=== PATIENT | female | born 1955 | race Caucasian/White ===

== ENCOUNTER 2022-08-12 11:21 | Day surgery (SDC) | payer MEDICARE, OTHER ==
[~2022-08-12 11:21] MED LIST: Lactated Ringers 1,000 ML IV SCH; Propofol 200 MG/20 ML SDV ONE; Sodium Chloride 0.9% 10 ML Syringe FLUSH PRN
[2022-08-12] MEDS ORDERED: Propofol 200 MG/20 ML SDV ONE (12:10)
[2022-08-12] MEDS ORDERED: Lidocaine 2% 100 MG/5 ML Syringe IV ONE (12:30)
== END 2022-08-12 13:54 | disposition home or self-care (01) ==
LOC: LL.SDS 11:21
PROVIDERS: ATTEND Surgery
DX: Z12.11 Encounter for screening for malignant neoplasm of colon (principal); K29.50 Unspecified chronic gastritis without bleeding; K57.30 Diverticulosis of large intestine without perforation or abscess without bleeding; E11.40 Type 2 diabetes mellitus with diabetic neuropathy, unspecified; I10 Essential (primary) hypertension; E78.00 Pure hypercholesterolemia, unspecified; E04.9 Nontoxic goiter, unspecified; Z86.010 Personal history of colon polyps; Z79.899 Other long term (current) drug therapy; Z79.4 Long term (current) use of insulin; Z79.84 Long term (current) use of oral hypoglycemic drugs; Z98.890 Other specified postprocedural states; Z90.49 Acquired absence of other specified parts of digestive tract; Z90.710 Acquired absence of both cervix and uterus
CPT/HCPCS: 00813; 88305; J2704; J7120